=== PATIENT | female | born 1980 | race Caucasian/White ===

== ENCOUNTER 2022-04-15 19:09 | Inpatient (IN) | payer MEDICARE, MEDICAID ==
[~2022-04-15] VITALS: Ht 157.5 cm; Wt 118.4 kg
[~2022-04-15 19:09] MED LIST: BACL20TA PO; DULO-113 PO; GABA800T PO; IBUP-2343 PO; LORA10CA PO; RANI150T7 PO
[2022-04-16] MEDS: HALOPERIDOL 5 MG TABLET PO PRN ×2 (00:03→13:01)
[2022-04-16] MEDS: LORazepam 2 MG TABLET PO PRN ×3 (00:03→17:32)
[2022-04-16] MEDS ORDERED: PNEUMOCOCCAL VACCINE POLYVALENT 0.5 ML VIAL [PPSV23] IM. ONE (00:15)
[2022-04-16] MEDS ORDERED: INFLUENZA VIRUS VACCINE QVS 2022-23 (6MO+)/PF 60 MCG/0.5 ML SYRINGE IM. ONE (00:15)
[2022-04-16 01:08] VITALS: BP 100/65
[2022-04-16] MEDS ORDERED: MAG HYDROX/AL HYDROX/SIMETH ES 30 ML SUSPENSION UDCUP PO PRN (05:30)
[2022-04-16] MEDS ORDERED: LOPERAMIDE HCL 2 MG CAPSULE PO PRN (05:30)
[2022-04-16] MEDS ORDERED: BENZOCAINE/MENTHOL LOZENGE PO PRN (05:30)
[2022-04-16] MEDS ORDERED: CloNIDine HCL 0.1 MG TABLET PO PRN (05:30)
[2022-04-16] MEDS ORDERED: PETROLATUM,WHITE 28 GM JELLY TP PRN (05:30)
[2022-04-16] MEDS ORDERED: ONDANSETRON HCL 4 MG TABLET PO PRN (05:30)
[2022-04-16] MEDS ORDERED: ALBUTEROL SULFATE HFA 90 MCG/PUFF 8 GM INHALER IH PRN (05:30)
[2022-04-16] MEDS ORDERED: MAGNESIUM HYDROXIDE SUSPENSION 30 ML UDCUP PO PRN (05:30)
[2022-04-16] MEDS ORDERED: DOCUSATE SODIUM 100 MG CAPSULE PO PRN (05:30)
[2022-04-16] MEDS ORDERED: BACITRACIN 28 GM OINTMENT TP PRN (05:30)
[2022-04-16 08:44] LABS: HEMOGLOBIN A1C 5.2 % (3.8-5.6)
[2022-04-16 08:46] LABS: ALBUMIN 3.3 g/dL (3.4-5.0); BILIRUBIN,TOTAL 0.3 mg/dL (0.1-1.0); CALCIUM, TOTAL 8.7 mg/dL (8.8-10.5); CHOL/HDL RATIO 4.5 (3.9-5.7); CREATININE 1.26 mg/dL (0.60-1.30); FREE T4 (FREE THYROXINE) 0.63 ng/dL (0.76-1.46); POTASSIUM 4.9 mmol/L (3.5-5.1); THYROID STIMULATING HORMONE 6.82 uIU/mL (0.36-3.74); TOTAL PROTEIN, SERUM 6.5 g/dL (6.4-8.2)
[2022-04-16] MEDS ORDERED: IBUPROFEN 600 MG TABLET PO SCH (09:00)
[2022-04-16] MEDS: BACLOFEN 10 MG TABLET PO SCH ×3 (09:00→17:13)
[2022-04-16 09:05] VITALS: BP 100/66
[2022-04-16] MEDS: GABAPENTIN 400 MG CAPSULE PO SCH ×3 (09:19→17:13)
[2022-04-16] MEDS: OMEPRAZOLE 20 MG CAPSULE PO SCH (09:22)
[2022-04-16] MEDS: LORATADINE 10 MG TABLET PO SCH (09:22)
[2022-04-16] MEDS ORDERED: IBUPROFEN 800 MG TABLET PO PRN (11:15)
[2022-04-16] MEDS ORDERED: IBUPROFEN 800 MG TABLET PO SCH (13:00)
[2022-04-16 15:33] VITALS: BP 101/70
[2022-04-16] MEDS: OxyCODONE HCL 5 MG IR TABLET PO PRN (15:33)
[2022-04-16 20:23] VITALS: BP 140/72
[2022-04-17] VITALS: BP 126/89
[2022-04-17] MEDS: ZOLPIDEM TARTRATE 10 MG TABLET PO PRN (00:07)
[2022-04-17] MEDS: BACLOFEN 10 MG TABLET PO SCH ×3 (08:10→16:45)
[2022-04-17] MEDS: LORATADINE 10 MG TABLET PO SCH (08:10)
[2022-04-17] MEDS: GABAPENTIN 400 MG CAPSULE PO SCH ×3 (08:10→16:45)
[2022-04-17] MEDS: DIVALPROEX SODIUM 500 MG DR TABLET PO SCH ×2 (08:10→23:24)
[2022-04-17] MEDS: OMEPRAZOLE 20 MG CAPSULE PO SCH (08:10)
[2022-04-17 08:16] VITALS: BP 129/66
[2022-04-17] MEDS: OxyCODONE HCL 5 MG IR TABLET PO PRN ×2 (08:16→14:25)
[2022-04-17] MEDS ORDERED: DENTURE ADHESIVE 68 GM CREAM DT PRN (08:30)
[2022-04-17 09:11] VITALS: BP 129/66
[2022-04-17] MEDS: HALOPERIDOL 5 MG TABLET PO PRN (12:04)
[2022-04-17 14:25] VITALS: BP 112/85
[2022-04-17 16:30] VITALS: BP 132/80
[2022-04-18 00:24] VITALS: BP 126/90
[2022-04-18] MEDS: ZOLPIDEM TARTRATE 10 MG TABLET PO PRN ×2 (00:26→20:30)
[2022-04-18] MEDS: OMEPRAZOLE 20 MG CAPSULE PO SCH (08:05)
[2022-04-18] MEDS: GABAPENTIN 400 MG CAPSULE PO SCH ×3 (08:05→16:33)
[2022-04-18] MEDS: HALOPERIDOL 5 MG TABLET PO PRN ×2 (08:05→12:53)
[2022-04-18] MEDS: DIVALPROEX SODIUM 500 MG DR TABLET PO SCH ×2 (08:05→20:30)
[2022-04-18] MEDS: LORATADINE 10 MG TABLET PO SCH (08:05)
[2022-04-18] MEDS: BACLOFEN 10 MG TABLET PO SCH ×3 (08:06→16:33)
[2022-04-18 08:08] VITALS: BP 153/63
[2022-04-18] MEDS: OxyCODONE HCL 5 MG IR TABLET PO PRN ×2 (08:08→14:52)
[2022-04-18 08:12] VITALS: BP 153/63
[2022-04-18 08:34] LABS: BASOPHILS % (AUTO) 0.2 % (0.0-2.0); EOSINOPHILS % (AUTO) 0.1 % (1.0-6.0); HEMATOCRIT 39.6 % (36-46); HEMOGLOBIN 12.9 g/dL (12.0-16.0); LYMPHOCYTES % (AUTO) 24.3 % (22.0-44.0); MEAN CORPUSCULAR HGB CONC 32.6 G/dL (31.0-37.0); MEAN CORPUSCULAR VOLUME 86 fL (80-100); MONOCYTES # (AUTO) 0.5 K/uL (0.1-1.0); MONOCYTES % (AUTO) 6.4 % (2.0-9.0); NEUTROPHILS # (AUTO) 5.6 K/uL (1.8-7.7); PLATELET COUNT (AUTO) 266 K/uL (150-450); RED BLOOD CELL COUNT(AUTO) 4.62 MIL/uL (4.00-5.20); RED CELL DISTRIBUTION WIDTH 14.4 % (11.5-14.5)
[2022-04-18 08:44] LABS: HEMOGLOBIN A1C 5.3 % (3.8-5.6)
[2022-04-18 09:45] LABS: ALBUMIN 3.8 g/dL (3.4-5.0); BILIRUBIN,TOTAL 0.4 mg/dL (0.1-1.0); CALCIUM, TOTAL 9.4 mg/dL (8.8-10.5); CHOL/HDL RATIO 4.5 (3.9-5.7); CREATININE 1.21 mg/dL (0.60-1.30); PHOSPHORUS 5.2 mg/dL (2.5-4.9); POTASSIUM 4.3 mmol/L (3.5-5.1); THYROID STIMULATING HORMONE 2.26 uIU/mL (0.36-3.74); TOTAL PROTEIN, SERUM 7.5 g/dL (6.4-8.2)
[2022-04-18] MEDS: ACETAMINOPHEN 325 MG TABLET PO PRN (11:44)
[2022-04-18 14:52] VITALS: BP 106/75
[2022-04-19 05:59] VITALS: BP 116/82
[2022-04-19] MEDS: OxyCODONE HCL 5 MG IR TABLET PO PRN ×3 (06:04→19:06)
[2022-04-19 08:30] VITALS: BP 139/88
[2022-04-19] MEDS: BACLOFEN 10 MG TABLET PO SCH ×3 (08:47→16:18)
[2022-04-19] MEDS: GABAPENTIN 400 MG CAPSULE PO SCH ×3 (08:47→16:18)
[2022-04-19] MEDS: DIVALPROEX SODIUM 500 MG DR TABLET PO SCH ×2 (08:47→20:23)
[2022-04-19] MEDS: OMEPRAZOLE 20 MG CAPSULE PO SCH (08:47)
[2022-04-19] MEDS: LORATADINE 10 MG TABLET PO SCH (08:47)
[2022-04-19 12:21] VITALS: BP 136/88
[2022-04-19] MEDS ORDERED: GABAPENTIN 400 MG CAPSULE PO SCH (13:00)
[2022-04-19] MEDS: HALOPERIDOL 5 MG TABLET PO PRN (13:58)
[2022-04-19 16:20] VITALS: BP 117/59
[2022-04-19 19:06] VITALS: BP 111/67
[2022-04-19] MEDS: QUEtiapine FUMARATE 200 MG TABLET PO SCH (20:23)
[2022-04-19] MEDS: TraZODone HCL 100 MG TABLET PO SCH (20:23)
[2022-04-19] MEDS: ZOLPIDEM TARTRATE 10 MG TABLET PO PRN (20:29)
[2022-04-20 03:21] VITALS: BP 135/90
[2022-04-20] MEDS: OxyCODONE HCL 5 MG IR TABLET PO PRN ×2 (03:30→10:33)
[2022-04-20 08:19] VITALS: BP 103/62
[2022-04-20] MEDS: BACLOFEN 10 MG TABLET PO SCH ×3 (09:33→16:28)
[2022-04-20] MEDS: LORATADINE 10 MG TABLET PO SCH (09:33)
[2022-04-20] MEDS: DIVALPROEX SODIUM 500 MG DR TABLET PO SCH ×2 (09:33→20:29)
[2022-04-20] MEDS: OMEPRAZOLE 20 MG CAPSULE PO SCH (09:34)
[2022-04-20] MEDS: DULoxetine HCL 60 MG CAPSULE PO SCH (09:34)
[2022-04-20] MEDS: GABAPENTIN 400 MG CAPSULE PO SCH ×3 (09:34→16:27)
[2022-04-20 09:56] LABS: GLUCOMETER DEV NAME(LOC) POC.BV
[2022-04-20] MEDS: QUEtiapine FUMARATE 200 MG TABLET PO SCH (20:29)
[2022-04-20] MEDS: TraZODone HCL 100 MG TABLET PO SCH (20:29)
[2022-04-20 20:34] VITALS: BP 108/75
[2022-04-20] MEDS: ZOLPIDEM TARTRATE 10 MG TABLET PO PRN (20:34)
[2022-04-21] MEDS: DULoxetine HCL 60 MG CAPSULE PO SCH (08:45)
[2022-04-21] MEDS: DIVALPROEX SODIUM 500 MG DR TABLET PO SCH (08:46)
[2022-04-21] MEDS: BACLOFEN 10 MG TABLET PO SCH ×2 (08:46→12:36)
[2022-04-21] MEDS: LORATADINE 10 MG TABLET PO SCH (08:46)
[2022-04-21] MEDS: GABAPENTIN 400 MG CAPSULE PO SCH ×2 (08:46→12:36)
[2022-04-21] MEDS: OMEPRAZOLE 20 MG CAPSULE PO SCH (08:46)
[2022-04-21 08:47] VITALS: BP 130/80
[2022-04-21] MEDS ORDERED: AcetaZOLAMIDE 250 MG TABLET PO SCH (09:00)
[2022-04-21] MEDS: OxyCODONE HCL 5 MG IR TABLET PO PRN (09:02)
[2022-04-21] MEDS ORDERED: ACET250T31 PO (11:37)
[2022-04-21] MEDS ORDERED: TRAZ-257 PO (12:10)
[2022-04-21] MEDS ORDERED: QUET200T30 PO (12:10)
[2022-04-21] MEDS ORDERED: DIVA-112 PO (12:10)
[2022-04-21] MEDS: ACETAMINOPHEN 325 MG TABLET PO PRN (12:29)
== END 2022-04-21 13:10 | disposition home or self-care (01) | DRG 885 ==
LOC: B2S 22:36
PROVIDERS: ADMIT Psychiatry & Neurology Psychiatry; ATTEND Psychiatry & Neurology Psychiatry
DX: F31.9 Bipolar disorder, unspecified (principal); Z20.822 Contact with and (suspected) exposure to COVID-19; E03.9 Hypothyroidism, unspecified; F22 Delusional disorders; F41.9 Anxiety disorder, unspecified; G47.00 Insomnia, unspecified; G89.4 Chronic pain syndrome; I10 Essential (primary) hypertension; K21.9 Gastro-esophageal reflux disease without esophagitis; K59.00 Constipation, unspecified; M79.7 Fibromyalgia; Z98.2 Presence of cerebrospinal fluid drainage device
CPT/HCPCS: 80053; 80061; 83036; 83735; 84100; 84439; 84443; 85025; J3535

== ENCOUNTER → 2022-06-08 | Outpatient (CLI) | payer OTHER ==
[~2022-06-08] MED LIST changes: +ACET250T31 PO; +DIVA-112 PO; -DULO-113 PO; -IBUP-2343 PO; +QUET200T30 PO; -RANI150T7 PO; +TRAZ-257 PO
== END | disposition home or self-care (01) ==
LOC: LABMN 15:56
PROVIDERS: ATTEND Psychiatry & Neurology Psychiatry
DX: F31.32 Bipolar disorder, current episode depressed, moderate (principal)
CPT/HCPCS: 80164